=== PATIENT | female | born 1995 ===

== ENCOUNTER 2019-06-07 11:46 | Emergency (ER) | payer MEDICAID, OTHER ==
--- NOTE | 2019-06-07 11:56 | Event Note ---
ED Screening Note Date of service: 06/07/19 Time: 11:52 ED Screening Note: This is a 23 y.o. F. that presents to the ER with cough, chills, and night sweats for 3 days. + chest pain, chills, cough, and night sweats. Patient is 6 months . History of TB and concerned it may be active. She took medication for turberculosis for 3 days and never completed treatment or f/u with PCP. This initial assessment/diagnostic orders/clinical plan/treatment(s) is/are subject to change based on patients health status, clinical progression and re- assessment by fellow clinical providers in the ED. Further treatment and workup at subsequent clinical providers discretion. Patient/guardian urged not to elope from the ED as their condition may be serious if not clinically assessed and managed. Initial orders include:
--- NOTE | 2019-06-07 13:43 | XRay Report ---
CHEST 2 VIEWS INDICATION: cough, r/o TB. COMPARISON: None FINDINGS: Support devices: None. Heart: Within normal limits. Lungs/pleura: No acute air space or interstitial disease. No pneumothorax. Additional findings: None. IMPRESSION: No acute findings. No findings to suggest tuberculosis in the chest. Signer Name: Baron White Jr, MD Signed: 06/07/2019 1:38 PM Workstation Name: [id number]
--- NOTE | 2019-06-07 14:30 | Emergency Department Report ---
ED General Adult HPI - General Chief complaint: Upper Respiratory Infection Stated complaint: POSITIVE TB TEST Time Seen by Provider: 06/07/19 11:51 Source: patient Mode of arrival: Ambulatory Limitations: No Limitations - History of Present Illness Initial comments: 23 year old female 6 1/2 month states "You can feel the baby kicking." she is here for cough occasionally productive of yellow sputum. Had + TB skin test in past. probably not fully compliant with prophylaxis by hx. No other complaint. -: Gradual, days(s) Worsens with: none Associated Symptoms: denies other symptoms, cough - Related Data Previous Rx's Medication Instructions Recorded Last Taken Type Azithromycin [Zithromax Z-RIMA] 250 mg PO DAILY #6 tab 06/07/19 Unknown Rx Allergies Allergy/AdvReac Type Severity Reaction Status Date / Time No Known Allergies Allergy Unverified 06/07/19 11:48 ED Review of Systems ROS: Stated complaint: POSITIVE TB TEST Other details as noted in HPI Constitutional: denies: chills, fever Eyes: denies: eye pain, eye discharge, vision change ENT: denies: ear pain, throat pain Respiratory: cough. denies: shortness of breath, wheezing Cardiovascular: denies: chest pain, palpitations Endocrine: no symptoms reported Gastrointestinal: denies: abdominal pain, nausea, diarrhea Genitourinary: denies: urgency, dysuria, discharge Musculoskeletal: denies: back pain, joint swelling, arthralgia Skin: denies: rash, lesions Neurological: denies: headache, weakness, paresthesias Psychiatric: denies: anxiety, depression Hematological/Lymphatic: denies: easy bleeding, easy bruising ED Past Medical Hx - Past Medical History Additional medical history: POSSITIVE FOR TB 2YRS AGO - Surgical History Past Surgical History?: No - Social History Smoking Status: Never Smoker Substance Use Type: None - Medications Home Medications: Home Medications Medication Instructions Recorded Confirmed Last Taken Type Azithromycin [Zithromax Z-RIMA] 250 mg PO DAILY #6 tab 06/07/19 Unknown Rx ED Physical Exam - General Limitations: No Limitations General appearance: alert, in no apparent distress - Head Head exam: Present: atraumatic, normocephalic - Eye Eye exam: Present: normal appearance. Absent: scleral icterus - ENT ENT exam: Present: mucous membranes moist - Neck Neck exam: Present: normal inspection - Respiratory Respiratory exam: Present: normal lung sounds bilaterally. Absent: respiratory distress - Cardiovascular Cardiovascular Exam: Present: regular rate, normal rhythm. Absent: systolic murmur, diastolic murmur, rubs, gallop - GI/Abdominal GI/Abdominal exam: Present: soft, normal bowel sounds, organomegaly (c/w dates). Absent: distended, tenderness, guarding, rebound, rigid - Extremities Exam Extremities exam: Present: normal inspection. Absent: pedal edema - Back Exam Back exam: Present: normal inspection - Neurological Exam Neurological exam: Present: alert, oriented X3, CN II-XII intact. Absent: motor sensory deficit - Psychiatric Psychiatric exam: Present: normal affect, normal mood - Skin Skin exam: Present: warm, dry, intact, normal color. Absent: rash ED Course Vital Signs 06/07/19 11:52 Temperature 98 F Pulse Rate 100 H Respiratory 18 Rate Blood Pressure 132/72 O2 Sat by Pulse 98 Oximetry ED Medical Decision Making - Radiology Data Radiology results: report reviewed (NAP), image reviewed Critical care attestation.: If time is entered above; I have spent that time in minutes in the direct care of this critically ill patient, excluding procedure time. ED Disposition Clinical Impression: Acute bronchitis Qualifiers: Bronchitis organism: unspecified organism Qualified Code(s): J20.9 - Acute bronchitis, unspecified Qualifiers: Weeks of gestation: 25 weeks Qualified Code(s): Z3A.25 - 25 weeks gestation of Disposition: -01 TO HOME OR SELFCARE Is pt being admited?: No Does the pt Need Aspirin: No Condition: Stable Instructions: Acute Bronchitis (ED), (ED) Additional Instructions: follow up with your OB physician. return any acute change or problem. Prescriptions: Azithromycin [Zithromax Z-RIMA] 250 mg PO DAILY #6 tab Referrals: usual, OB [Other] - 3-5 Days Time of Disposition: 14:30
[2019-06-07 14:58] VITALS: BP 131/77
== END 2019-06-07 14:48 | disposition home or self-care (01) ==
LOC: ED 11:46
DX: O99.512 Diseases of the respiratory system complicating pregnancy, second trimester (principal); J20.9 Acute bronchitis, unspecified; Z3A.25 25 weeks gestation of pregnancy; Z79.899 Other long term (current) drug therapy
CPT/HCPCS: 71046; 99283

== ENCOUNTER 2019-09-12 22:33 | Inpatient (IN) | payer OTHER ==
--- NOTE | 2019-09-12 23:17 | History and Physical Report ---
History of Present Illness Date of examination: 09/12/19 (Pt presents with SROM @ 2130 clear fluid) Chief complaint: SROM/Ctx History of present illness: EDC Calculations LMP: 09/17/2019 EDC Confirmation: 09/17/2019 Gestational Age: 12 3/7 weeks Past History : 2 Term Births: 0 Premature Births: 0 Living Children: 0 Para: 0 Mult. Births: 0 Prev : 0 Prev. attempt? 0 Aborta: 1 Elect. Ab: 1 Spont. 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 Past Surgical History: Appendectomy - 12yrs old Family History Summary: Father (biol.) - Has Family History of Asthma - Entered On: 03/08/2019 PGM - Has Family History of Arthritis - Entered On: 03/08/2019 General Comments - FH: Mother - pre-diabetes Social History: Patient is single Smoking History: Patient has never smoked. 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 Infection History Hx of STD: none HIV Risk Eval: low risk Hepatitis B Risk Eval: low risk Personal hx. of genital herpes: no Partner hx. of genital herpes: no Rash, Viral, or Febrile illness since last LMP? no Varicella/Chicken Pox Status: Immunized TB Risk: yes Infection History Comments: Dx w/ TB in 2018; no tx; pt reports in latent TB status Genetic History Congenital Heart Defect: Mom: no Dad: no Rubén Disease: Mom: no Dad: no Thalassemia Mom: no Dad: no Neural Tube Defect Mom: no Dad: no Down's Syndrome Mom: no Dad: no Ha-Sachs Mom: no Dad: no Sickle Cell Disease/Trait Mom: no Dad: no Hemophilia Mom: no Dad: no Muscular Dystrophy Mom: no Dad: no Cystic Fibrosis Mom: no Dad: no [place] Chorea Mom: no Dad: no Mental Retardation Mom: no Dad: no Fragile X Mom: no Dad: no Other Genetic/Chromosomal Disorder Mom: no Dad: no Child w/other defect Mom: no Dad: no Enviromental Exposures Enviromental Exposures Reviewed Xray Exposure: no Medication, drug, or alcohol use since LMP: no Chemical/Other Exposure: no Exposure to Cat Liter: yes Hx of Parvovirus (Fifth Disease): no Occupational Exposure to Children: none 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 [facility] Active Medications: None Current Allergies: No known allergies Past History - Obstetrical History Expected Date of Delivery: 09/17/19 Actual Gestation: 39 Week(s) 3 Day(s) : 2 Para: 0 Hx # Term Pregnancies: 0 Number of Pregnancies: 0 Spontaneous Abortions: 0 Induced : 1 Number of Living Children: 0 Medications and Allergies Allergies Allergy/AdvReac Type Severity Reaction Status Date / Time No Known Allergies Allergy Verified 09/12/19 23:54 Home Medications Medication Instructions Recorded Confirmed Last Taken Type Vit-Fe Fumar-FA [ 1 tab PO DAILY 09/12/19 09/12/19 09/12/19 History Vitamin] - Vital Signs Vital signs: Vital Signs Pulse BP 99 H 132/81 09/12/19 22:45 09/12/19 22:45 Temp Pulse Resp BP Pulse Ox 99 H 132/81 09/12/19 22:45 09/12/19 22:45 - Physical Exam Breasts: Positive: deferred Cardiovascular: Regular rate, Normal S1, Normal S2 Lungs: Positive: Normal air movement Abdomen: Positive: normal appearance, soft, normal bowel sounds. Negative: distention, tenderness Genitourinary (Female): Positive: normal external genitalia Vulva: both: normal Vagina: Positive: normal moisture. Negative: discharge Cervix: Negative: lesion, discharge Uterus: Positive: normal size, normal contour Adnexa: both: normal Anus/Rectum: Positive: normal perianal skin, heme negative. Negative: rectal mass, hemorrhoids Extremities: Positive: normal Deep Tendon Reflex Grade: Normal +2 - Obstetrical FHR: category 1 Uterine Contraction Monitor Mode: External Cervical Dilatation: 1.5 (SROM 2130 clear fluid) Cervical Effacement Percentage: 80 station: 0 Uterine Contraction Pattern: Regular Uterine Tone Measurement Phase: Resting Uterine Contraction Intensity: Moderate Results Result Diagrams: 09/12/19 23:15 All other labs normal. GBS Negative HBsAg Screen Negative Negative *1 RPR Non Reactive Non Reactive *2 Rubella Antibodies, IgG 2.22 index Immune >0.99 *3 Non-immune <0.90 Equivocal 0.90 - 0.99 Immune >0.99 ABO Grouping O *4 Rh Factor Positive *5 Please note: Prior records for this patient's ABO / Rh type are not available for additional verification. Antibody Screen Negative Negative *6 WBC 8.7 x10E3/uL 3.4-10.8 *7 RBC 4.02 x10E6/uL 3.77-5.28 *8 Hemoglobin 12.1 g/dL 11.1-15.9 *9 Hematocrit 36.3 % 34.0-46.6 *10 MCV 90 fL 79-97 *11 MCH 30.1 pg 26.6-33.0 *12 MCHC 33.3 g/dL 31.5-35.7 *13 RDW 13.6 % 12.3-15.4 *14 Platelets 230 x10E3/uL 150-450 *15 Neutrophils 81 % Not Estab. *16 Lymphs 12 % Not Estab. *17 Monocytes 5 % Not Estab. *18 Eos 1 % Not Estab. *19 Basos 0 % Not Estab. *20 ! Immature Cells <No Reported Value> *21 Neutrophils (Absolute) [H] 7.2 x10E3/uL 1.4-7.0 *22 Lymphs (Absolute) 1.1 x10E3/uL 0.7-3.1 *23 Monocytes(Absolute) 0.4 x10E3/uL 0.1-0.9 *24 Eos (Absolute) 0.1 x10E3/uL 0.0-0.4 *25 Baso (Absolute) 0.0 x10E3/uL 0.0-0.2 *26 ! Immature Granulocytes 1 % Not Estab. *27 ! Immature Grans (Abs) 0.0 x10E3/uL 0.0-0.1 *28 ! NRBC <No Reported Value> *29 Hematology Comments: <No Reported Value> *30 Tests: (2) AFP Tetra ([id number]) ! Results Report *31 ! Test Results: *Screen Negative* *32 Tests: (4) HB Solu + Rflx Fra (057247) Hemoglobin (Hgb) Solubility Negative Negative *57 Tests: (5) Panel 389363 (155373) HIV Screen 4th Generation wRfx Non Reactive Non Reactive *58 Tests: (6) HCV Ab w/Rflx to Verification (389503) ! HCV Ab <0.1 s/co ratio 0.0-0.9 *59 Tests: (7) Comment: ([id number]) ! Comment: SPRCS *60 Non reactive HCV antibody screen is consistent with no HCV infection, unless recent infection is suspected or other evidence exists to indicate HCV infection. Tests: (8) Urine Culture, Routine ([id number]) Urine Culture, Routine Final report *61 Tests: (9) Result ([id number]) ! Result 1 "Result Below..." *62 RESULT: Lactobacillus species 25,000-50,000 colony forming units per mL Susceptibility not normally performed on this organism. Assessment and Plan - Patient Problems (1) 39 weeks gestation of Onset Date: ~09/12/19 Current Visit: Yes Status: Acute Plan to address problem: 24yo @ 39 weeks with SROM GBS negative Pt reported Latent TB All orders in EMR. (2) Spontaneous rupture of membranes Onset Date: ~09/12/19 Current Visit: Yes Status: Acute Plan to address problem: Pt reports SROM @ 2130 clear fluid (3) Latent tuberculosis Onset Date: ~09/12/19 Current Visit: Yes Status: Acute Plan to address problem: Pt was dx in 2017 in [place] She started but did not complete treatment due to moving and insurance. Pt reported she was now Latent TB. Pt has no evidence of TB at present: lungs clear bilaterally, no cough, no fever. No known recent exposure to TB or Flu. Pt did receive the flu vaccine. Consulted with . Jewel Sorter Annabel was notified of pt status and does not feel that isolation interventions are necessary. She does request we notify ID. Consult was placed in the chart. Pt did not notify HD when she applied for her Medicaid. We did give pt a consult at the beginning of her but she did not go to see them.
[2019-09-12] MEDS ORDERED: OXYTOCIN 20 UNIT/1000ML DRIP 20 UNITS/1,000 ML BAG IV SCH (23:45)
[2019-09-12] MEDS ORDERED: fentaNYL 100 MCG/2 ML INJ IV PRN (23:50)
[2019-09-12] MEDS ORDERED: LIDOCAINE (2%) 20 MG/1 ML VIAL 20 ML MDV INFILTRATI ONE (23:50)
[2019-09-12] MEDS ORDERED: TERBUTALINE 1 MG/1 ML INJ IVP PRN (23:50)
[2019-09-12] MEDS ORDERED: ePHEDrine SULFATE 50 MG/1 ML INJ IV PRN (23:50)
[2019-09-12] MEDS ORDERED: TERBUTALINE 1 MG/1 ML INJ SUB-Q PRN (23:50)
[2019-09-12] MEDS ORDERED: ONDANSETRON 4 MG/2 ML INJ IV PRN (23:50)
[2019-09-13 00:08] LABS: Hematocrit 36.8 % (30.3-42.9); Hemoglobin 12.1 gm/dl (10.1-14.3); Mean Corpuscular HGB Conc 33 % (30-34); Mean Corpuscular Volume 89 fl (79-97); Red Blood Count 4.13 M/mm3 (3.65-5.03); Red Cell Distribution Width 17.2 % (13.2-15.2)
[2019-09-13] MEDS ORDERED: ACETAMINOPHEN 325 MG TAB PO PRN (00:58)
[2019-09-13 01:12] LABS: Platelet Count 267 K/mm3 (140-440)
[2019-09-13] MEDS ORDERED: OXYTOCIN DRIP 30 UNITS/500 ML BAG IV SCH (02:00)
[2019-09-13] MEDS: LACTATED RINGERS 1,000 ML IV SCH ×3 (02:00→11:45)
[2019-09-13 03:23] LABS: Amphetamine Screen,Urine PRESUMPTIVE NEGATIVE; Benzodiazepines Screen,Urine PRESUMPTIVE NEGATIVE; Cannabinoid Screen,Urine PRESUMPTIVE NEGATIVE; Cocaine Screen,Urine PRESUMPTIVE NEGATIVE; Methadone Screen,Urine PRESUMPTIVE NEGATIVE; Opiate Screen,Urine PRESUMPTIVE NEGATIVE
[2019-09-13] MEDS ORDERED: NALOXONE 2 MG/2 ML INJ IV PRN (03:40)
[2019-09-13] MEDS ORDERED: ePHEDrine SULFATE 50 MG/1 ML INJ IV PRN (03:40)
--- NOTE | 2019-09-13 03:42 | Anesthesia Consultation ---
Anesthesia Consult and Med Hx Date of service: 09/13/19 - Airway Anesthetic Teeth Evaluation: Good ROM Head & Neck: Adequate Mental/Hyoid Distance: Adequate Mallampati Class: Class II Intubation Access Assessment: Probably Good - Pulmonary Exam CTA: Yes - Cardiac Exam Cardiac Exam: RRR - Pre-Operative Health Status ASA Pre-Surgery Classification: ASA2 Proposed Anesthetic Plan: Epidural - Pulmonary Hx Asthma: Yes (childhood) Hx Respiratory Symptoms: Yes (latent tb) - Cardiovascular System Hx Hypertension: No - Central Nervous System Hx Seizures: No Hx Psychiatric Problems: No - Endocrine Hx Renal Disease: No Hx Hypothyroidism: No Hx Hyperthyroidism: No - Hematic Hx Anemia: No Hx Sickle Cell Disease: No - Other Systems Hx Alcohol Use: No
[2019-09-13] MEDS ORDERED: fentaNYL-BUPIV 2 MCG/ML-0.125% 200 MCG/100 ML BAG EPIDURAL SCH (04:00)
--- NOTE | 2019-09-13 04:29 | Progress Note ---
Assessment and Plan Pit @ 4mu Pt sleeping Anticipate delivery Re-eval as needed - Patient Problems (1) 39 weeks gestation of Onset Date: ~09/12/19 Current Visit: Yes Status: Acute (2) Spontaneous rupture of membranes Onset Date: ~09/12/19 Current Visit: Yes Status: Acute (3) Latent tuberculosis Onset Date: ~09/12/19 Current Visit: Yes Status: Acute Subjective - Subjective Date of service: 09/13/19 (Comfortable with epidural) Interval history: EDC Calculations LMP: 09/17/2019 EDC Confirmation: 09/17/2019 Gestational Age: 12 3/7 weeks Past History : 2 Term Births: 0 Premature Births: 0 Living Children: 0 Para: 0 Mult. Births: 0 Prev : 0 Prev. attempt? 0 Aborta: 1 Elect. Ab: 1 Spont. 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 Past Surgical History: Appendectomy - 12yrs old Family History Summary: Father (biol.) - Has Family History of Asthma - Entered On: 03/08/2019 PGM - Has Family History of Arthritis - Entered On: 03/08/2019 General Comments - FH: Mother - pre-diabetes Social History: Patient is single Smoking History: Patient has never smoked. 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 Infection History Hx of STD: none HIV Risk Eval: low risk Hepatitis B Risk Eval: low risk Personal hx. of genital herpes: no Partner hx. of genital herpes: no Rash, Viral, or Febrile illness since last LMP? no Varicella/Chicken Pox Status: Immunized TB Risk: yes Infection History Comments: Dx w/ TB in 2018; no tx; pt reports in latent TB status Genetic History Congenital Heart Defect: Mom: no Dad: no Rubén Disease: Mom: no Dad: no Thalassemia Mom: no Dad: no Neural Tube Defect Mom: no Dad: no Down's Syndrome Mom: no Dad: no Ha-Sachs Mom: no Dad: no Sickle Cell Disease/Trait Mom: no Dad: no Hemophilia Mom: no Dad: no Muscular Dystrophy Mom: no Dad: no Cystic Fibrosis Mom: no Dad: no [place] Chorea Mom: no Dad: no Mental Retardation Mom: no Dad: no Fragile X Mom: no Dad: no Other Genetic/Chromosomal Disorder Mom: no Dad: no Child w/other defect Mom: no Dad: no Enviromental Exposures Enviromental Exposures Reviewed Xray Exposure: no Medication, drug, or alcohol use since LMP: no Chemical/Other Exposure: no Exposure to Cat Liter: yes Hx of Parvovirus (Fifth Disease): no Occupational Exposure to Children: none 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 [facility] Active Medications: None Current Allergies: No known allergies Patient reports: movement normal Objective - Vital Signs Vital Signs: Vital Signs - 12hr 09/12/19 09/12/19 09/13/19 22:45 23:40 02:45 Temperature 98.6 F 98.3 F Pulse Rate 99 H 94 H Respiratory 18 Rate Blood Pressure 132/81 O2 Sat by Pulse 97 Oximetry 09/13/19 09/13/19 09/13/19 02:48 02:50 02:55 Temperature Pulse Rate 90 95 H 89 Respiratory Rate Blood Pressure O2 Sat by Pulse 94 100 98 Oximetry 09/13/19 09/13/19 09/13/19 03:00 03:05 03:10 Temperature Pulse Rate 91 H 93 H 89 Respiratory Rate Blood Pressure 129/64 O2 Sat by Pulse 99 98 Oximetry 09/13/19 09/13/19 09/13/19 03:20 03:25 03:29 Temperature Pulse Rate 99 H 100 H 100 H Respiratory Rate Blood Pressure O2 Sat by Pulse 98 99 89 Oximetry 09/13/19 09/13/19 09/13/19 03:30 03:33 03:35 Temperature Pulse Rate 94 H 114 H 126 H Respiratory Rate Blood Pressure 132/75 O2 Sat by Pulse 98 97 Oximetry 09/13/19 09/13/19 09/13/19 03:36 03:40 03:43 Temperature Pulse Rate 116 H 119 H 102 H Respiratory Rate Blood Pressure 126/63 114/59 O2 Sat by Pulse 97 Oximetry 09/13/19 09/13/19 09/13/19 03:45 03:50 03:53 Temperature Pulse Rate 93 H 97 H 99 H Respiratory Rate Blood Pressure 119/65 120/63 O2 Sat by Pulse 98 100 Oximetry 09/13/19 09/13/19 09/13/19 03:54 03:55 04:00 Temperature Pulse Rate 99 H 100 H 83 Respiratory Rate Blood Pressure O2 Sat by Pulse 92 99 99 Oximetry 09/13/19 09/13/19 09/13/19 04:05 04:10 04:15 Temperature Pulse Rate 95 H 101 H 102 H Respiratory Rate Blood Pressure O2 Sat by Pulse 100 99 100 Oximetry 09/13/19 04:20 Temperature Pulse Rate 107 H Respiratory Rate Blood Pressure O2 Sat by Pulse 100 Oximetry - Exam Breasts: deferred Cardiovascular: Regular rate Lungs: Normal air movement Abdomen: Present: normal appearance, soft. Absent: distention, tenderness Uterus: Present: normal FHR: auscultation normal, category 1, category 2 (head compression) Uterine Contraction Monitor Mode: Internal Cervical Dilatation: 5 (Internals placed) Cervical Effacement Percentage: 100 station: 0 Uterine Contraction Pattern: Regular Uterine Tone Measurement Phase: Resting Uterine Contraction Intensity: Moderate - Labs Labs: Abnormal Labs 09/12/19 23:15 WBC 17.9 H RDW 17.2 H Laboratory Results - last 24 hr 09/12/19 09/12/19 09/12/19 23:15 23:15 23:15 WBC 17.9 H RBC 4.13 Hgb 12.1 Hct 36.8 MCV 89 MCH 29 MCHC 33 RDW 17.2 H Plt Count 267 Urine Opiates Screen Urine Methadone Screen Ur Barbiturates Screen Ur Phencyclidine Scrn Ur Amphetamines Screen U Benzodiazepines Scrn Urine Cocaine Screen U Marijuana (THC) Screen Drugs of Abuse Note Syphilis IgG Antibody Non-reactive Blood Type O POSITIVE Antibody Screen Negative 09/13/19 02:15 WBC RBC Hgb Hct MCV MCH MCHC RDW Plt Count Urine Opiates Screen Presumptive negative Urine Methadone Screen Presumptive negative Ur Barbiturates Screen Presumptive negative Ur Phencyclidine Scrn Presumptive negative Ur Amphetamines Screen Presumptive negative U Benzodiazepines Scrn Presumptive negative Urine Cocaine Screen Presumptive negative U Marijuana (THC) Screen Presumptive negative Drugs of Abuse Note Disclamer Syphilis IgG Antibody Blood Type Antibody Screen
--- NOTE | 2019-09-13 06:02 | Event Note ---
Date: 09/13/19 (head compression) SVE 8,100,0 Pit @ 4mu Anticipate delivery
--- NOTE | 2019-09-13 07:20 | Progress Note ---
Assessment and Plan A: 24 y.o. @ 39+ wks with SROM@ 2130 on 09/12 for clear fluid, active labor P: Continue with pitocin per protocol Anticipate Subjective - Subjective Date of service: 09/13/19 (Starting to feel some pressure) Principal diagnosis: IUP @ 39+ wks with SROM @ 2130 on 09/12 clear fluid Patient reports: movement normal Objective - Vital Signs Vital Signs: Vital Signs - 12hr 09/12/19 09/12/19 09/13/19 22:45 23:40 02:45 Temperature 98.6 F 98.3 F Pulse Rate 99 H 94 H Respiratory 18 Rate Blood Pressure 132/81 O2 Sat by Pulse 97 Oximetry 09/13/19 09/13/19 09/13/19 02:48 02:50 02:55 Temperature Pulse Rate 90 95 H 89 Respiratory Rate Blood Pressure O2 Sat by Pulse 94 100 98 Oximetry 09/13/19 09/13/19 09/13/19 03:00 03:05 03:10 Temperature Pulse Rate 91 H 93 H 89 Respiratory Rate Blood Pressure 129/64 O2 Sat by Pulse 99 98 Oximetry 09/13/19 09/13/19 09/13/19 03:20 03:25 03:29 Temperature Pulse Rate 99 H 100 H 100 H Respiratory Rate Blood Pressure O2 Sat by Pulse 98 99 89 Oximetry 09/13/19 09/13/19 09/13/19 03:30 03:33 03:35 Temperature Pulse Rate 94 H 114 H 126 H Respiratory Rate Blood Pressure 132/75 O2 Sat by Pulse 98 97 Oximetry 09/13/19 09/13/19 09/13/19 03:36 03:40 03:43 Temperature Pulse Rate 116 H 119 H 102 H Respiratory Rate Blood Pressure 126/63 114/59 O2 Sat by Pulse 97 Oximetry 09/13/19 09/13/19 09/13/19 03:45 03:50 03:53 Temperature Pulse Rate 93 H 97 H 99 H Respiratory Rate Blood Pressure 119/65 120/63 O2 Sat by Pulse 98 100 Oximetry 09/13/19 09/13/19 09/13/19 03:54 03:55 04:00 Temperature 98.4 F Pulse Rate 99 H 100 H 83 Respiratory Rate Blood Pressure O2 Sat by Pulse 92 99 99 Oximetry 09/13/19 09/13/19 09/13/19 04:05 04:10 04:15 Temperature Pulse Rate 95 H 101 H 102 H Respiratory Rate Blood Pressure O2 Sat by Pulse 100 99 100 Oximetry 09/13/19 09/13/19 09/13/19 04:20 04:25 04:30 Temperature Pulse Rate 107 H 108 H 94 H Respiratory Rate Blood Pressure O2 Sat by Pulse 100 98 98 Oximetry 09/13/19 09/13/19 09/13/19 04:35 04:40 04:45 Temperature Pulse Rate 106 H 97 H 94 H Respiratory Rate Blood Pressure O2 Sat by Pulse 100 99 99 Oximetry 09/13/19 09/13/19 09/13/19 04:50 04:55 05:00 Temperature Pulse Rate 94 H 90 79 Respiratory Rate Blood Pressure O2 Sat by Pulse 99 98 100 Oximetry 09/13/19 09/13/19 09/13/19 05:05 05:10 05:15 Temperature Pulse Rate 89 90 83 Respiratory Rate Blood Pressure O2 Sat by Pulse 100 98 99 Oximetry 09/13/19 09/13/19 09/13/19 05:20 05:25 05:30 Temperature Pulse Rate 79 94 H 97 H Respiratory Rate Blood Pressure O2 Sat by Pulse 99 99 99 Oximetry 09/13/19 09/13/19 09/13/19 05:35 05:40 05:42 Temperature Pulse Rate 102 H 95 H 100 H Respiratory Rate Blood Pressure 123/63 O2 Sat by Pulse 99 99 Oximetry 09/13/19 09/13/19 09/13/19 05:45 05:50 05:55 Temperature Pulse Rate 107 H 105 H 97 H Respiratory Rate Blood Pressure O2 Sat by Pulse 98 99 97 Oximetry 09/13/19 09/13/19 09/13/19 06:00 06:05 06:10 Temperature Pulse Rate 107 H 113 H 110 H Respiratory Rate Blood Pressure O2 Sat by Pulse 100 100 99 Oximetry 09/13/19 09/13/19 09/13/19 06:15 06:20 06:25 Temperature Pulse Rate 102 H 106 H 126 H Respiratory Rate Blood Pressure O2 Sat by Pulse 98 99 100 Oximetry 09/13/19 09/13/19 09/13/19 06:30 06:35 06:40 Temperature Pulse Rate 111 H 103 H 110 H Respiratory Rate Blood Pressure O2 Sat by Pulse 100 99 98 Oximetry 09/13/19 09/13/19 09/13/19 06:45 06:50 06:55 Temperature Pulse Rate 109 H 111 H 98 H Respiratory Rate Blood Pressure O2 Sat by Pulse 99 99 99 Oximetry 09/13/19 09/13/19 09/13/19 07:00 07:05 07:09 Temperature Pulse Rate 139 H 118 H 114 H Respiratory Rate Blood Pressure O2 Sat by Pulse 98 99 94 Oximetry 09/13/19 09/13/19 07:10 07:15 Temperature Pulse Rate 115 H 116 H Respiratory Rate Blood Pressure O2 Sat by Pulse 94 94 Oximetry - Exam Breasts: deferred Cardiovascular: Regular rate Lungs: Normal air movement Abdomen: Present: normal appearance Vulva: both: normal Uterus: Present: normal FHR: category 1 Uterine Contraction Monitor Mode: Internal Cervical Dilatation: 8.5 (Position changed to fowlers (Throne position)) Cervical Effacement Percentage: 100 station: 0 Uterine Contraction Frequency (min): 2-3 min Uterine Contraction Pattern: Regular Uterine Tone Measurement Phase: Resting Uterine Contraction Intensity: Moderate Extremities: normal Deep Tendon Reflex Grade: Normal +2 - Labs Labs: Abnormal Labs 09/12/19 23:15 WBC 17.9 H RDW 17.2 H Laboratory Results - last 24 hr 09/12/19 09/12/19 09/12/19 23:15 23:15 23:15 WBC 17.9 H RBC 4.13 Hgb 12.1 Hct 36.8 MCV 89 MCH 29 MCHC 33 RDW 17.2 H Plt Count 267 Urine Opiates Screen Urine Methadone Screen Ur Barbiturates Screen Ur Phencyclidine Scrn Ur Amphetamines Screen U Benzodiazepines Scrn Urine Cocaine Screen U Marijuana (THC) Screen Drugs of Abuse Note Syphilis IgG Antibody Non-reactive Blood Type O POSITIVE Antibody Screen Negative 09/13/19 02:15 WBC RBC Hgb Hct MCV MCH MCHC RDW Plt Count Urine Opiates Screen Presumptive negative Urine Methadone Screen Presumptive negative Ur Barbiturates Screen Presumptive negative Ur Phencyclidine Scrn Presumptive negative Ur Amphetamines Screen Presumptive negative U Benzodiazepines Scrn Presumptive negative Urine Cocaine Screen Presumptive negative U Marijuana (THC) Screen Presumptive negative Drugs of Abuse Note Disclamer Syphilis IgG Antibody Blood Type Antibody Screen
--- NOTE | 2019-09-13 07:47 | Event Note ---
Date: 09/13/19 Pt c/o feeling more pressure and was some late decels as well as varibles. Pt examined and noted to have same cx exam at 8.5/100/0 with caput noted. Decel noted during my exam with pt on her back. Decels resolved with position change. Con't O2 at this time. Will anticpate .
[2019-09-13] MEDS: MINERAL OIL 30 ML ORAL LIQD PO PRN ×2 (09:55→10:30)
[2019-09-13] MEDS ORDERED: OXYTOCIN 10 UNIT/1 ML INJ ONE (10:11)
--- NOTE | 2019-09-13 11:15 | Procedure Note ---
OB Delivery Note - Delivery Date of Delivery: 09/13/19 Online Education Manager: CAITLYN LÓPEZ Estimated blood loss: 300cc - Vaginal Delivery presentation: vertex Delivery position: OA Intrapartum events: mult.variable deceleratio, shoulder dystocia Delivery induction: none Delivery augmentation: pitocin Delivery monitor: internal FHT, internal uterine Delivery placenta: spontaneous Delivery cord: 3 umbilical vessels Episiotomy: none Delivery laceration: none Anesthesia: epidural Delivery comments: of viable female over intact perineum. Complicated by shoulder dystocia. head delivered NANCY, right shoulder anterior. Head of bed down, legs in Jose M, and supra pubic pressure applied by RN to right side. Total time from delivery of head to delivery of baby 45 seconds. Cord clamped, cut and immediately handed to RN for evaluation. [facility] team called and at crib side immediately. Cord blood collected. Placenta delivered intact complete. No lacerations repaired. Abrasions and bruising noted to perineum. EBL 300ml. Apgars 1,9. Weight 7-8. moving both arms. Mother and infant left in care of RN in stable condition.
[2019-09-13] MEDS ORDERED: WITCH HAZEL/ GLYCERIN PAD TP PRN (12:36)
[2019-09-13] MEDS ORDERED: ACETAMINOPHEN 500 MG TAB PO PRN (12:36)
[2019-09-13] MEDS ORDERED: diphenhydrAMINE 25 MG CAP PO PRN (12:36)
[2019-09-13] MEDS ORDERED: ONDANSETRON 4 MG/2 ML INJ IV PRN (12:36)
[2019-09-13] MEDS ORDERED: BENZOCAINE/MENTHOL 20/0.5% TOP SPRAY 56 GM TP PRN (12:36)
[2019-09-13] MEDS ORDERED: MAGNESIUM HYDROXIDE (MOM) ORAL LIQD UDC PO PRN (12:36)
[2019-09-13] MEDS ORDERED: PROMETHAZINE 25 MG TAB PO PRN (12:36)
[2019-09-13] MEDS ORDERED: LANOLIN/ZINC/DIMETHICONE (LANSINOH) 7 GM TP PRN (12:36)
--- NOTE | 2019-09-13 12:43 | Consultation ---
History of Present Illness - Reason for Consult Consult date: 09/13/19 Latent tuberculosis - History of Present Illness 24 yo F PMHx latent TB admitted to the hospital at 39 weeks with SROM. Aside from her -related symptoms, she denies any cough, weight loss, fevers, sweats, chills. She underwent this AM. Regarding her latent TB she notes that she was diagnosed in 2017 when living in [place]. She was initially started on treatment, but did not complete the course due to insurance issues. She believes she was supposed to take the antibiotics for 9 months. She denies any recent exposures to tuberculosis, and is unsure if she has ever had exposure to any person with active, untreated TB. She recived the flu vaccine this year. She was initially consulted to ID when her began, however she did not follow up with her appointment. Afebrile since admission with a white count of 18.. No current antibiotics. No cultures for review. Imaging personally reviewed: None obtained Review of systems: Bold if positive; otherwise negative GENERAL: fever, chills, weight loss, fatigue, night sweats EYES: blurry vision, eye pain HENT: headache, hearing loss, sore throat, dysphagia, sinus pain CARDIO: chest pain, palpitations, orthopnea PULM: shortness of breath, wheezing, cough, sputum, hemoptysis GI: nausea, vomiting, diarrhea, abdominal pain, blood in stool : urinary frequency, urgency, dysuria, urethral discharge MSK: joint pain, back pain, swelling SKIN: rash, redness HEME: easy bruising, bleeding Past History Past Medical History: other (Latent TB) Past Surgical History: No surgical history Social history: lives with family. denies: alcohol abuse Family history: no significant family history Medications and Allergies Allergies Allergy/AdvReac Type Severity Reaction Status Date / Time No Known Allergies Allergy Verified 09/12/19 23:54 Home Medications Medication Instructions Recorded Confirmed Last Taken Type Vit-Fe Fumar-FA [ 1 tab PO DAILY 09/12/19 09/12/19 09/12/19 History Vitamin] Active Meds: Active Medications Acetaminophen (Tylenol) 650 mg PO Q4H PRN PRN Reason: Pain, Mild (1-3) Last Admin: 09/13/19 01:09 Dose: 650 mg Documented by: Ephedrine Sulfate (Ephedrine Sulfate) 10 mg IV Q2M PRN PRN Reason: Hypotension Ephedrine Sulfate (Ephedrine Sulfate) 10 mg IV Q2M PRN PRN Reason: Hypotension Fentanyl (Sublimaze) 100 mcg IV Q2H PRN PRN Reason: Labor Pain Oxytocin/Sodium Chloride (Pitocin/Ns 20 Unit/1000ml Drip) 20 units in 1,000 mls @ 125 mls/hr IV DIRECT RADHA Oxytocin/Sodium Chloride (Pitocin/Ns 30 Unit/500ml) 30 units in 500 mls @ 4 mls/hr IV Q30M RADHA; Protocol Last Titration: 09/13/19 04:35 Dose: 2 ml/hr, 2 mls/hr Documented by: Lactated Ringer's (Lactated Ringers) 1,000 mls @ 125 mls/hr IV DIRECT RADHA Last Admin: 09/13/19 11:45 Dose: 125 mls/hr Documented by: Fentanyl/Bupivacaine/Sodium Chlor (Fentanyl-Bupiv 2 Mcg/Ml-0.125%) 200 mcg in 100 mls @ 12 mls/hr EPIDURAL TITR RADHA; Protocol Last Admin: 09/13/19 04:38 Dose: 12 mls/hr Documented by: Mineral Oil (Mineral Oil) 30 ml PO QHS PRN PRN Reason: Constipation Last Admin: 09/13/19 10:30 Dose: 30 ml Documented by: Naloxone HCl (Naloxone) 0.2 mg IV Q5M PRN PRN Reason: Respiratory sedation Ondansetron HCl (Zofran) 4 mg IV Q8H PRN PRN Reason: Nausea And Vomiting Terbutaline Sulfate (Brethine) 0.25 mg SUB-Q ONCE PRN PRN Reason: Hyperstimulation/Hypertonicity Terbutaline Sulfate (Brethine) 0.25 mg IVP ONCE PRN PRN Reason: Hyperstimulation/Hypertonicity Physical Examination - Physical Exam Narrative exam: General Normal appearance, well developed, no acute distress Eyes - PERRLA, EOM intact ENT - Moist mucous membranes, no lymphadenopathy Neck - No noticeable or palpable swelling, redness or rash around throat or on face Lymph Nodes - No lymphadenopathy Cardiovascular - RRR no m/r/g, no JVD, no carotid bruits Lungs - Clear to auscultation, no use of accessory muscles, no crackles or wh eezes. Skin - No rashes, skin warm and dry, no erythematous areas Abdomen - Normal bowel sounds, abdomen soft and nontender Extremities - No edema, cyanosis or clubbing Musculoskeletal - 5/5 strength, normal range of motion, no swollen or erythematous joints. Neurological Alert and oriented x 3, no obvious defect - Constitutional Vitals: Vital Signs Temp Pulse Resp BP Pulse Ox 98.2 F 82 18 116/62 98 09/13/19 07:40 09/13/19 11:45 09/13/19 07:40 09/13/19 11:45 09/13/19 08:36 Temperature -Last 24 Hours Temperature 98.2 F Temperature 98.4 F Temperature 98.3 F Temperature 98.6 F Results - Labs CBC & Chem 7: 09/12/19 23:15 Labs: Abnormal lab results 09/12/19 Range/Units 23:15 WBC 17.9 H (4.5-11.0) K/mm3 RDW 17.2 H (13.2-15.2) % Assessment and Plan Cultures None Assessment: 24 yo F PMHx latent TB admitted with SROM in 39th week of . 1. Latent TB: previously started but did not finish course of treatment, likely oh INH for 9 months. At this point, given she is HIV negative, recommend waiting 3 months after her delivery to avoid medication induced toxicities (I.e., liver toxicities). Would re-evaluate with a chest x-ray after 3 months to ensure no progression to active TB (low likelihood), and then treat latent TB at that time. Likely to give 9 month course of INH as rifapentine can turn breast milk orange, however, will discuss with patient at that time. Recs: - defer latent TB therapy for 3 monmths post- - After 3 months, repeat CXR - Assuming no sign of active TB then, proceed with treatment. - Patient should follow up in my clinic in 3 months. - No infectious disease contra-indication to discharge. Thank you for the consult, we will continue to follow. Dr. Carter covering this weekend. [facility] ([facility]) M: [phone] O: [phone] F: [phone]
[2019-09-13] MEDS: IBUPROFEN 800 MG TAB PO SCH ×2 (13:00→17:43)
[2019-09-13] MEDS ORDERED: OXYTOCIN 20 UNIT/1000ML DRIP 20 UNITS/1,000 ML BAG IV SCH (13:00)
[2019-09-14 01:22] LABS: Hematocrit 29.8 % (30.3-42.9)
[2019-09-14] MEDS: IBUPROFEN 800 MG TAB PO SCH ×2 (03:25→12:41)
[2019-09-14] MEDS ORDERED: TETANUS,DIPH,PERTUSS(ACELL) VACCINE 0.5 ML SYRINGE IM ONE (06:00)
--- NOTE | 2019-09-14 08:04 | Post Anesthesia Evaluation ---
- Post Anesthesia Evaluation Patient Participated: Yes Airway Patent: Yes Stable Respiratory Function: Yes Nausea/Vomiting: No Temp > 96.8F: Yes Pain Manageable: Yes Adequeate Hydration: Yes Anesthesia Complications: No Block Receding Appropriately: Yes Patient on Ventilator: No
--- NOTE | 2019-09-14 09:51 | Discharge Summary ---
Providers - Providers Date of Admission: 09/12/19 22:34 Date of discharge: 09/14/19 (Pt has strong desire to go home.) Attending physician: FELIPA KNAPP 09/13/19 08:00 Consult to Physician [CONS] Routine Comment: Consulting Provider: MONICA HOLM Physician Instructions: Reason For Exam: latent TB 39 w Primary care physician: FELIPA KNAPP Hospitalization Delivery: Episiotomy: none Laceration: none Other procedures: none complications: none Discharge diagnosis: IUP at term delivered baby: male Pertinent studies: Pt was diagnosed with TB in 2017 and had started treatment, but never finished, and did not follow up. States that she was told she had latent TB. . She was seen this admission by ID and they recommend a follow up with them 3 months in their clinic and if she remains asymptomatic, they will proceed with treatment from there. They have also stated that she has no contraindications to being discharged home. She currently denies s/sx of TB. Emphasized follow up is very important. Pt states that she understands and was given the ID office number to call for an appointment for follow up and will make an appointment once discharged home. Hospital course: S: Pt doing well and has strong desire to go home. States passing flatus, ambulating, voiding, and eating without difficulty. States minimal bleeding. O: VSS. H/H 10.0/29.8. Fundus firm, minimal bleeding. A: 24 y.o.l s/p @ term with latent TB. Evaluated by ID with recommendations for follow up 3 months . P: Discharge home with instructions. Follow up with infectious disease in 3 months. Schedule baby's circumcision in 1 week. Schedule visit in 4 weeks. Condition at discharge: Good Disposition: DC-01 TO HOME OR SELFCARE Plan - Discharge Medications Prescriptions: Lidocain2.5%/Prilocai2.5% [Emla] 1 applic TP ONCE 1 Days tube Ibuprofen [Motrin] 800 mg PO Q8HR PRN #30 tablet PRN Reason: Pain, Moderate (4-6) - Provider Discharge Summary Activity: routine, no sex for 6 weeks, no heavy lifting 4 weeks, no strenuous exercise Diet: routine Instructions: routine Additional instructions: [] Smoking cessation referral if applicable(refer to patient education folder for contact #) [] Refer to [facility] Booklet Call your doctor immediately for: * Fever > 100.5 * Heavy vaginal bleeding ( >1 pad per hour) * Severe persistent headache * Shortness of breath * Reddened, hot, painful area to leg or breast * Drainage or odor from incision. * Keep incision clean and dry at all times and follow doctor's instructions regarding bathing/showering - Follow up plan Follow up: FELIPA KNAPP MD [Primary Care Provider] - 7 Days (Congratulations!!! Please schedule your baby's circumcision in 1 week. Yout have been prescribed EMLA cream. Please do not use it at home but bring it with you to your baby's circumcision appointment. Please schedule an appointment with infectious disease in 3 months. You have been given their office number. If you have any questions for them about your appointment, please given them a call. Please take all medications as prescribed. Please schedule a visit in 4 weeks. If you have any questions or concerns, please call the office. ) Forms: [facility] Discharge Summary
[2019-09-14 13:52] VITALS: BP 110/71
== END 2019-09-14 14:00 | disposition home or self-care (01) | DRG 775 ==
LOC: TRG 22:33 → LD 22:34 → TRG 22:34 → LD 23:47 → OB 09-13 12:41
PROVIDERS: ADMIT Obstetrics & Gynecology; ATTEND Obstetrics & Gynecology
PROC: 10E0XZZ Delivery of Products of Conception, External Approach (ICD-10-PCS; principal; 2019-09-13)
PROC: 3E0234Z Introduction of Serum, Toxoid and Vaccine into Muscle, Percutaneous Approach (ICD-10-PCS; 2019-09-13)
PROC: 3E0R3BZ Introduction of Anesthetic Agent into Spinal Canal, Percutaneous Approach (ICD-10-PCS; 2019-09-13)
PROC: 00HU33Z Insertion of Infusion Device into Spinal Canal, Percutaneous Approach (ICD-10-PCS; 2019-09-13)
DX: O76 Abnormality in fetal heart rate and rhythm complicating labor and delivery (principal); O99.52 Diseases of the respiratory system complicating childbirth; O66.0 Obstructed labor due to shoulder dystocia; Z22.7 Latent tuberculosis; Z3A.39 39 weeks gestation of pregnancy; Z37.0 Single live birth; Z23 Encounter for immunization; Z90.49 Acquired absence of other specified parts of digestive tract; Z82.5 Family history of asthma and other chronic lower respiratory diseases; Z82.61 Family history of arthritis
CPT/HCPCS: 36415; 80307; 85014; 85018; 85027; 86592; 86850; 86900; 86901; 87806; 90471; 90715; G0378; A6250; J2590; J7120

== ENCOUNTER 2020-07-27 21:06 | Emergency (ER) | payer OTHER | END 2020-07-28 01:43 | LOC: ED 21:06 | DX: R05 Cough (principal); Z53.21 Procedure and treatment not carried out due to patient leaving prior to being seen by health care provider ==

== ENCOUNTER 2020-08-31 15:04 | Outpatient (CLI) | payer OTHER ==
[2020-08-31 15:45] LABS: Bilirubin,Urine NEG (Negative); Blood,Urine NEG (Negative); Color,Urine Yellow (Yellow); Mucus,Urine 3+ /HPF
[2020-08-31 16:17] LABS: Alanine Aminotransferase 9 units/L (7-56); Uric Acid 3.4 mg/dL (3.5-7.6)
[2020-08-31 16:23] LABS: Hematocrit 30.5 % (30.3-42.9); Mean Corpuscular HGB Conc 33 % (30-34); Mean Corpuscular Volume 82 fl (79-97); Platelet Count 273 K/mm3 (140-440); Red Blood Count 3.71 M/mm3 (3.65-5.03); Red Cell Distribution Width 15.8 % (13.2-15.2)
[2020-08-31 16:41] VITALS: BP 114/64
== END 2020-08-31 17:00 | disposition home or self-care (01) ==
LOC: TRG 15:04 → APU 15:08 → TRG 17:00
PROVIDERS: ATTEND Obstetrics & Gynecology
DX: O13.3 Gestational [pregnancy-induced] hypertension without significant proteinuria, third trimester (principal); Z3A.38 38 weeks gestation of pregnancy
CPT/HCPCS: 36415; 59025; 81001; 82565; 83615; 84450; 84460; 84550; 85027

== ENCOUNTER 2021-11-23 08:06 | Emergency (ER) | payer OTHER ==
[2021-11-23 08:15] VITALS: BP 131/69
--- NOTE | 2021-11-24 17:55 | Electrocardiograph Report ---
[facility] Test Date: 2021-11-23 Test Time: 08:15:54 Pat Name: PAMELA MADRID Department: Room: Gender: F Dental Chairside Assistant: REI : 1995 Requested By: ED DOC Order Number: [id number] Reading MD: Guillermina Meneses Measurements Intervals [place] Rate: 84 P: 72 IA: 155 QRS: 41 QRSD: 90 T: 49 QT: 377 QTc: 447 Interpretive Statements Sinus rhythm No previous ECG available for comparison Electronically Signed On 11-24-2021 17:55:39 EDT by Guillermina Meneses
== END 2021-11-23 13:08 | disposition left against medical advice (07) ==
LOC: ED 08:06
DX: R07.9 Chest pain, unspecified (principal); Z53.21 Procedure and treatment not carried out due to patient leaving prior to being seen by health care provider
CPT/HCPCS: 93005